=== PATIENT | female | born 1980 | race Caucasian/White ===

== ENCOUNTER 2019-02-19 07:53 | Emergency (ER) | payer OTHER, MEDICAID ==
[2019-02-19] MEDS: DIPHENHYDRAMINE 50 MG INJ IV (08:30)
[2019-02-19] MEDS: METHYLPREDNISOLONE 125 MG INJ IV (08:30)
[2019-02-19] MEDS: FAMOTIDINE 20 MG INJ IV (08:30)
== END 2019-02-19 09:32 | disposition home or self-care (01) ==
LOC: FTE 09:32
DX: R22.0 Localized swelling, mass and lump, head (principal)
CPT/HCPCS: 81025; 96374; 96375; 99284-25